=== PATIENT | male | born 1955 | race Caucasian/White ===

== ENCOUNTER 2016-12-19 10:54 | Day surgery (SDC) | payer MEDICAID ==
[2016-12-19] MEDS ORDERED: Midazolam 1 MG/ML 2 ML SDV ONE (11:12)
[2016-12-19] MEDS ORDERED: Propofol 200 MG/20 ML SDV ONE ×2 (11:12→13:33)
[2016-12-19] MEDS ORDERED: fentaNYL 100 MCG/2 ML SDV ONE ×2 (11:12→11:35)
[2016-12-19] MEDS ORDERED: Succinylcholine/Normal Saline 200 MG/10 ML Syringe ONE (11:37)
[2016-12-19] MEDS ORDERED: Rocuronium 50 MG/5 ML Vial ONE (11:37)
[2016-12-19] MEDS ORDERED: Ondansetron 4 MG/2 ML SDV ONE (11:37)
[2016-12-19] MEDS ORDERED: Dexamethasone 4 MG/ML SDV ONE (11:37)
[2016-12-19] MEDS ORDERED: Neostigmine Methylsulfate 1 MG/ML 5 ML Syringe ONE (11:37)
[2016-12-19] MEDS ORDERED: ceFAZolin 2 GM in Sodium Chloride 0.9% 50 ML IV ONE (12:00)
[2016-12-19] MEDS: Lactated Ringers 1,000 ML IV SCH ×2 (12:04→14:12)
[2016-12-19] MEDS ORDERED: Lidocaine 2% 20 ML MDV ONE (12:25)
[2016-12-19] MEDS ORDERED: Bupivacaine 0.5% 50 ML MDV ONE (12:25)
[2016-12-19] MEDS ORDERED: Albuterol/Ipratropium 3.0-0.5 MG/3 ML Neb Soln NEB ONE (12:45)
[2016-12-19] MEDS ORDERED: Naloxone 0.4 MG/ML SDV ONE (13:53)
[2016-12-19 15:24] VITALS: BP 124/84
--- NOTE | 2016-12-19 19:45 | OR ---
DATE OF PROCEDURE: 12/19/2016 LAUNDRY PRESSER: None. PREOPERATIVE DIAGNOSIS: Osteomyelitis, right heel, lateral side. POSTOPERATIVE DIAGNOSIS: Osteomyelitis, right heel, lateral side. PROCEDURE: Bone biopsy of right heel with cultures of right heel. ANESTHESIA: General. HEMOSTASIS: Obtained with an ankle tourniquet at 250 mmHg. ESTIMATED BLOOD LOSS: 10 mL. MATERIALS: Drain was placed. INJECTABLES: 17 mL of 1:1 mixture of lidocaine 2% plain, Marcaine 0.5% plain were injected intraoperatively. PATHOLOGY: Bone was sent both for pathological examination and for culture, and culture swabs were also taken, deep swabs, with aerobic and anaerobic. CONDITION: Stable. INDICATIONS: Painful lesion status post puncture wound in the right heel, plantar aspect of the right foot, that was unresponsive to conservative measures with signs of osteomyelitis on MRI. PROCEDURE IN DETAIL: The patient was brought to the operating room, placed on the operating table in supine position. Following general anesthesia, the right foot was scrubbed, prepped, and draped in the usual aseptic manner, raised to 60 degrees for hemostasis. The Esmarch was not used. Tourniquet was inflated. Foot was lowered to table. Skin incision was made on the lateral aspect of the right heel. Under fluoroscopic guidance, incisions were deepened to the subcutaneous tissue straight down to bone. The bone was probed and there was a soft area on the lateral aspect of the right heel, so a small portion of the plantar lateral aspect of the right heel was removed and taking down healthy solid hard bone that was not soft to metal probe. There was no purulence, no malodor, no signs of infection deeply. The bone was divided up into 2 separate containers, one was dry and was to be sent for aerobic, anaerobic, acid-fast bacteria, and fungal culture and the other was sent for pathological examination. The incision was then flushed out with copious amounts of 1 L of sterile saline and then closed with 2-0 Vicryl stitches and 3-0 nylon and then a drain was placed in the middle to help allow drainage and this will be removed in 48 hours. The patient's foot was dressed with Xeroform, 4x4s, Kerlix, and Coban. The patient was returned to recovery room with vital signs stable and vascular status intact to both feet. Ordered a PICC line inserted with vancomycin per pharmacy. The patient was told to rest and elevate the right foot, maintain strict nonweightbearing, ambulate with crutches or knee scooter and return to clinic in 2 days to have his dressing change and his drain removed and the patient to have IV vancomycin per pharmacy dosing. The patient was given prescription for Holloway 5/325 one tab p.o. q.4-6 h. p.r.n. pain dispensed #40. The patient is told to go to the emergency room immediately if he has any nausea, vomiting, fever, chills, chest pain, calf pain, or difficulty breathing. Wolfgang Wade DPM /[id number]
== END 2016-12-19 15:40 | disposition home or self-care (01) ==
LOC: JP.SDS 10:54
PROVIDERS: ATTEND Podiatrist Foot & Ankle Surgery
DX: M89.8X7 Other specified disorders of bone, ankle and foot (principal); K21.9 Gastro-esophageal reflux disease without esophagitis; E78.5 Hyperlipidemia, unspecified; E11.42 Type 2 diabetes mellitus with diabetic polyneuropathy; Z79.82 Long term (current) use of aspirin; Z79.899 Other long term (current) drug therapy; Z98.890 Other specified postprocedural states; F17.210 Nicotine dependence, cigarettes, uncomplicated
CPT/HCPCS: 20240; 36415; 82565; 82962; 87015; 87070; 87075; 87077; 87102; 87116; 87186; 87205; 87206; 88304; J0690; J1100; J2250; J2310; J2405; J2704; J3010; J7050; J7120; J7620

== ENCOUNTER 2020-05-10 10:44 | Emergency (ER) | payer MEDICAID ==
[2020-05-10 10:47] VITALS: BP 135/73; PULSE 63
--- NOTE | 2020-05-10 11:14 | EDM.PDOC ---
ED HPI GENERAL MEDICAL PROBLEM - General Chief Complaint: Genitourinary Problem Stated Complaint: KIDNEY STONE INCREASED PAIN Time Seen by Provider: 05/10/20 11:10 Source of Information: Reports: Patient, EMS History Limitations: Reports: No Limitations - History of Present Illness INITIAL COMMENTS - FREE TEXT/NARRATIVE: pt had a acute onset of rt flank pain and pain going to the the rt testicle, Onset: Today, Sudden, Other ( started at 7am. ) Duration: Hour(s): Location: Reports: Abdomen Associated Symptoms: Reports: Other (pt was nauseated and did dry heave, ) Right Lower Abdomen Pain Score (Numeric/FACES): 2 - Related Data Allergies Allergy/AdvReac Type Severity Reaction Status Date / Time No Known Allergies Allergy Verified 05/10/20 10:52 Home Meds: Home Meds Albuterol Sulfate [Proair Hfa] 2 puff IH QID 12/16/16 [History] Aspirin [Children's Aspirin] 81 mg PO DAILY 12/16/16 [History] Clotrimazole [Lotrimin AF 1% Crm] 1 applic TOP BID 12/16/16 [History] Insulin Glargine,Hum.Rec.Anlog [Lantus Solostar] 15 units SQ BEDTIME 12/16/16 [History] Ranitidine [Zantac] 150 mg PO BEDTIME 12/16/16 [History] atorvaSTATin [Lipitor] 40 mg PO BEDTIME 12/16/16 [History] metFORMIN [Glucophage] 1,000 mg PO BIDMEALS 12/16/16 [History] Tiotropium [Spiriva HandiHaler] 1 puff IH DAILY 05/10/20 [History] Past Medical History HEENT History: Reports: Impaired Vision Other HEENT History: wears glasses Cardiovascular History: Reports: High Cholesterol, SOB on Exertion Respiratory History: Reports: Asthma, Bronchitis, Recurrent, Pneumonia, Recurrent, SOB Gastrointestinal History: Reports: None Musculoskeletal History: Reports: Arthritis, Fracture, Neck Pain, Chronic Neurological History: Reports: Neuropathy, Diabetic, Neuropathy, Peripheral Endocrine/Metabolic History: Reports: Diabetes, Type II Dermatologic History: Reports: Other (See Below) Other Dermatologic History: bilat inguinal rash for "years" - Infectious Disease History Infectious Disease History: Reports: Chicken Pox - Past Surgical History Head Surgeries/Procedures: Reports: None HEENT Surgical History: Reports: Naso-Sinus Surgery Cardiovascular Surgical History: Reports: None Respiratory Surgical History: Reports: None GI Surgical History: Reports: Colonoscopy, Hernia Repair/Other Endocrine Surgical History: Reports: None Musculoskeletal Surgical History: Reports: Other (See Below) Social & Family History - Family History Cardiac: Reports: Aneurysm Respiratory: Reports: COPD - Tobacco Use Smoking Status *Q: Current Every Day Smoker Years of Tobacco use: 50 Packs/Tins Daily: 1.5 Used Tobacco, but Quit: No Second Hand Smoke Exposure: Yes - Caffeine Use Caffeine Use: Reports: Coffee - Recreational Drug Use Recreational Drug Use: No ED ROS GENERAL - Review of Systems Review Of Systems: See Below Constitutional: Reports: No Symptoms HEENT: Reports: No Symptoms Respiratory: Reports: No Symptoms Cardiovascular: Reports: No Symptoms Endocrine: Reports: No Symptoms GI/Abdominal: Reports: Abdominal Pain, Other ( rt flank area. ) : Reports: Flank Pain Musculoskeletal: Reports: No Symptoms Skin: Reports: No Symptoms Neurological: Reports: No Symptoms Psychiatric: Reports: Anxiety ED EXAM, GI/ABD - Physical Exam Exam: See Below Text/Narrative:: pt arrived with pain in the rt flank extending to the groin. Exam Limited By: No Limitations General Appearance: Alert, Anxious, Moderate Distress Ears: Normal TMs Nose: Normal Inspection Throat/Mouth: Normal Inspection Head: Atraumatic Neck: Normal Inspection Respiratory/Chest: No Respiratory Distress Cardiovascular: Regular Rate, Rhythm GI/Abdominal Exam: Other ( tender in the suprapupic area. ) (Male) Exam: Deferred Rectal (Males) Exam: Deferred Back Exam: Normal Inspection Extremities: Normal Inspection Neurological: Alert, Oriented, Normal Cognition Psychiatric: Anxious Course - Vital Signs Last Recorded V/S: Last Vital Signs Temp 35.9 C L 05/10/20 10:55 Pulse 63 05/10/20 10:55 Resp 17 05/10/20 10:55 BP 135/73 05/10/20 10:55 Pulse Ox 98 05/10/20 10:55 - Orders/Labs/Meds Orders: Active Orders 24 hr Category Date Time Status Sodium Chloride 0.9% [Normal Saline] 1,000 ml Med 05/10/20 11:15 Active IV ASDIRECTED Sodium Chloride 0.9% [Normal Saline] 1,000 ml Med 05/10/20 12:45 Active IV ASDIRECTED Medication Orders Sodium Chloride (Normal Saline) 1,000 mls @ 999 mls/hr IV ASDIRECTED ROSARIO Last Admin: 05/10/20 11:21 Dose: 999 mls/hr Documented by: KISHORE Sodium Chloride (Normal Saline) 1,000 mls @ 999 mls/hr IV ASDIRECTED ROSARIO Last Admin: 05/10/20 13:02 Dose: 999 mls/hr Documented by: KISHORE Labs: Laboratory Tests 05/10/20 05/10/20 05/10/20 Range/Units 11: 11:20 11:20 WBC 17.2 H (4.5-11.0) K/uL RBC 4.73 (4.30-5.90) M/uL Hgb 15.8 H (12.0-15.0) g/dL Hct 46.3 (40.0-54.0) % MCV 98 (80-98) fL MCH 33 H (27-31) pg MCHC 34 (32-36) % Plt Count 235 (150-400) K/uL Neut % (Auto) 89 H (36-66) % Lymph % (Auto) 5 L (24-44) % Burt % (Auto) 6 (2-6) % Eos % (Auto) 1 L (2-4) % Baso % (Auto) 0 (0-1) % Sodium 137 L (140-148) mmol/L Potassium 4.6 (3.6-5.2) mmol/L Chloride 104 (100-108) mmol/L Carbon Dioxide 28 (21-32) mmol/L Anion Gap 9.6 (5.0-14.0) mmol/L BUN 11 (7-18) mg/dL Creatinine 1.2 (0.8-1.3) mg/dL Est Cr Clr Drug Dosing 68.63 mL/min Estimated GFR (MDRD) > 60 (>60) Glucose 203 H (74-106) mg/dL Calcium 8.7 (8.5-10.1) mg/dL Total Bilirubin 0.4 (0.2-1.0) mg/dL AST 16 (15-37) U/L ALT 21 (12-78) U/L Alkaline Phosphatase 86 (46-116) U/L Total Protein 6.9 (6.4-8.2) g/dL Albumin 3.8 (3.4-5.0) g/dL Globulin 3.1 (2.3-3.5) g/dL Albumin/Globulin Ratio 1.2 (1.2-2.2) Urine Color Yellow (YELLOW) Urine Appearance Clear (CLEAR) Urine pH 5.5 (5.0-8.0) Ur Specific Pyrites 1.025 (1.008-1.030) Urine Protein Negative (NEGATIVE) mg/dL Urine Glucose (UA) 250 H (NEGATIVE) mg/dL Urine Ketones Negative (NEGATIVE) mg/dL Urine Occult Blood Small H (NEGATIVE) Urine Nitrite Negative (NEGATIVE) Urine Bilirubin Negative (NEGATIVE) Urine Urobilinogen 0.2 (0.2-1.0) EU/dL Ur Leukocyte Esterase Negative (NEGATIVE) Urine RBC 0-5 (0-5) Urine WBC 0-5 (0-5) Ur Epithelial Cells Not seen Amorphous Sediment Not seen Urine Bacteria Not seen Urine Mucus Moderate Meds: Medications Generic Name Dose Route Start Last Admin Trade Name Freq PRN Reason Stop Dose Admin Sodium Chloride 1,000 mls @ 999 mls/hr 05/10/20 11:15 05/10/20 11:21 Normal Saline IV 999 mls/hr ASDIRECTED ROSARIO Administration Sodium Chloride 1,000 mls @ 999 mls/hr 05/10/20 12:45 05/10/20 13:02 Normal Saline IV 999 mls/hr ASDIRECTED ROSARIO Administration Discontinued Medications Generic Name Dose Route Start Last Admin Trade Name Samantha PRN Reason Stop Dose Admin Hydromorphone HCl 0.5 mg 05/10/20 13:48 05/10/20 13:57 Dilaudid IVPUSH 05/10/20 13:49 0.5 mg ONETIME ONE Administration Ketorolac Tromethamine 30 mg 05/10/20 12:39 05/10/20 13:01 Toradol IVPUSH 05/10/20 12:40 30 mg ONETIME ONE Administration Tamsulosin HCl 0.4 mg 05/10/20 12:38 05/10/20 13:02 Flomax PO 05/10/20 12:39 0.4 mg ONETIME ONE Administration - Re-Assessments/Exams Free Text/Narrative Re-Assessment/Exam: 05/10/20 12:39 cat scan shows a large stone in the rt kidney. He has a 4 mm stone by the rt bladder area. His urine did not reveal alot of blood. Departure - Departure Time of Disposition: 14:38 Disposition: Home, Self-Care 01 Condition: Fair Clinical Impression: Renal calculi, Ureteral calculus, right - Discharge Information Referrals: PCP,None [Primary Care Provider] - Forms: ED Department Discharge Care Plan Goals: strain all urine, push fluids, flomax .4 for 5 days, torodol 10 mg q6h prn for pain, percocet 5/325 q6h prn for severe pain, rtc if pain should be unciontrolle d, If stone is not passed in the next 2 days see your own provider for followup. Sepsis Event Note (ED) - Evaluation Sepsis Screening Result: No Definite Risk - Focused Exam Vital Signs: Vital Signs Temp Pulse Resp BP Pulse Ox 05/10/20 10:55 35.9 C L 63 17 135/73 98 05/10/20 10:46 35.9 C L 63 17 135/73 98 - My Orders Last 24 Hours: My Active Orders 05/10/20 11:15 Sodium Chloride 0.9% [Normal Saline] 1,000 ml IV ASDIRECTED 05/10/20 12:45 Sodium Chloride 0.9% [Normal Saline] 1,000 ml IV ASDIRECTED - Assessment/Plan Last 24 Hours: My Active Orders 05/10/20 11:15 Sodium Chloride 0.9% [Normal Saline] 1,000 ml IV ASDIRECTED 05/10/20 12:45 Sodium Chloride 0.9% [Normal Saline] 1,000 ml IV ASDIRECTED
[2020-05-10] MEDS ORDERED: Sodium Chloride 0.9% 1,000 ML IV SCH ×2 (11:15→12:45)
--- NOTE | 2020-05-10 12:25 | CRLCT ---
INDICATION: Right flank pain radiating to the groin. TECHNIQUE: CT abdomen and pelvis without contrast. COMPARISON: None FINDINGS: Lower chest: Unremarkable. Liver: Unremarkable. Spleen: Unremarkable. Pancreas: Unremarkable. Gallbladder and bile ducts: Several small dependent high attenuation stones approximately. Kidneys: Moderate obstructive uropathy appearance of the right kidney. Hydroureter extends to a 4 mm calculus at the ureterovesicular junction. Urinary bladder is decompressed. Dense 7 mm lateral midpole calculus. Several 1 mm or less punctate developing calculi in the lower pole. 3 mm calculus lower pole left kidney. 1 mm or less developing calculi throughout the collecting system left kidney. Small hemorrhagic high attenuation cyst ventral upper pole. Several other small parenchymal cysts suggested in the left kidney. Adrenal glands: Unremarkable. GI tract: Unremarkable. Appendix is normal. Vascular structures: Atherosclerosis diffusely. Aneurysmal dilatation of infrarenal aorta to 4.5 cm greatest AP diameter. Minor dilatation at the origin of the right common iliac. Lymph nodes: Unremarkable. Miscellaneous: Right lower quadrant peritoneal laparoscopic hernia repair changes. No free air or significant free fluid. Pelvic Organs: Moderate prostatomegaly. Bones: Unremarkable for age. IMPRESSION: 4 mm right UVJ calculus with moderate obstructive uropathy right kidney. Multiple stones in each kidney. Large caliceal calculi on the right is 7 mm. One small hemorrhagic cyst upper pole left kidney with several smaller benign-appearing parenchymal cyst poorly characterized on this noncontrast study. Prostatomegaly. 4.5 cm infrarenal abdominal aortic aneurysm. Moderately prominent diffuse atherosclerotic calcification. Please note that all CT scans at this facility use dose modulation, iterative reconstruction, and/or weight-based dosing when appropriate to reduce radiation dose to as low as reasonably achievable. Dictated by Howard Leo MD @ May 10 2020 12:23PM Signed by Dr. Howard Leo @ May 10 2020 12:23PM
[2020-05-10] MEDS ORDERED: Tamsulosin 0.4 MG Cap.ER PO ONE (12:38)
[2020-05-10] MEDS ORDERED: Ketorolac 30 MG/ML SDV IVPUSH ONE (12:39)
[2020-05-10] MEDS ORDERED: HYDROmorphone 0.5 MG/0.5 ML Syringe IVPUSH ONE (13:48)
== END 2020-05-10 14:59 | disposition home or self-care (01) ==
LOC: JP.ED 10:44
DX: N20.2 Calculus of kidney with calculus of ureter (principal); E78.00 Pure hypercholesterolemia, unspecified; J45.909 Unspecified asthma, uncomplicated; E11.42 Type 2 diabetes mellitus with diabetic polyneuropathy; F17.210 Nicotine dependence, cigarettes, uncomplicated; Z79.82 Long term (current) use of aspirin; Z79.4 Long term (current) use of insulin; Z79.899 Other long term (current) drug therapy
CPT/HCPCS: 36415; 74176; 80053; 81001; 85025; 96361; 96374; 96375; 99285-25; A9270-GY; J1170; J1885; J7030

== ENCOUNTER 2022-07-18 15:37 | Emergency (ER) | payer MEDICARE, MEDICAID ==
[2022-07-18] MEDS ORDERED: Ketorolac 30 MG/ML SDV IM ONE (17:22)
[2022-07-18 17:47] LABS: ESTIMATED GFR 13 mL/min (>60)
[2022-07-18] MEDS ORDERED: HYDROmorphone 0.5 MG/0.5 ML Syringe IVPUSH ONE (20:05)
[2022-07-18 21:04] VITALS: BP 131/75; PULSE 94
== END 2022-07-18 20:12 ==
LOC: JP.ED 15:37
DX: N20.1 Calculus of ureter (principal); N17.9 Acute kidney failure, unspecified; E78.00 Pure hypercholesterolemia, unspecified; J45.909 Unspecified asthma, uncomplicated; E11.42 Type 2 diabetes mellitus with diabetic polyneuropathy; M19.90 Unspecified osteoarthritis, unspecified site; Z72.0 Tobacco use; Z79.82 Long term (current) use of aspirin; Z79.4 Long term (current) use of insulin; Z79.899 Other long term (current) drug therapy; Z20.822 Contact with and (suspected) exposure to COVID-19
CPT/HCPCS: 36415; 80053; 83605; 84145; 85025; 96372; 96374; 99284; J1170; J1885; U0002

== ENCOUNTER 2022-08-26 09:57 | Emergency (ER) | payer MEDICARE, MEDICAID ==
[2022-08-26 10:17] VITALS: BP 128/67; PULSE 98
== END 2022-08-26 14:41 | disposition home or self-care (01) ==
LOC: JP.ED 09:57
DX: N39.0 Urinary tract infection, site not specified (principal); E78.00 Pure hypercholesterolemia, unspecified; E11.9 Type 2 diabetes mellitus without complications; Z79.84 Long term (current) use of oral hypoglycemic drugs; Z79.899 Other long term (current) drug therapy
CPT/HCPCS: 36415; 80048; 81001; 83605; 84145; 85025; 87086; 99283

== ENCOUNTER 2022-11-01 07:09 | Day surgery (SDC) | payer MEDICARE, MEDICAID ==
[2022-11-01] MEDS ORDERED: fentaNYL 50 MCG/ML SDV ONE (07:24)
[2022-11-01] MEDS ORDERED: Midazolam 1 MG/ML 2 ML SDV ONE (07:24)
[2022-11-01] MEDS ORDERED: Propofol 200 MG/20 ML SDV ONE (07:24)
[2022-11-01] MEDS ORDERED: Lactated Ringers 1,000 ML IV SCH (08:00)
[2022-11-01 09:46] VITALS: BP 131/76; PULSE 76
== END 2022-11-01 10:05 | disposition home or self-care (01) ==
LOC: JP.SDS 07:09
PROVIDERS: ATTEND Family Medicine
DX: Z12.11 Encounter for screening for malignant neoplasm of colon (principal); D12.5 Benign neoplasm of sigmoid colon; E11.9 Type 2 diabetes mellitus without complications; K21.9 Gastro-esophageal reflux disease without esophagitis; E78.5 Hyperlipidemia, unspecified; J44.9 Chronic obstructive pulmonary disease, unspecified; Z79.899 Other long term (current) drug therapy
CPT/HCPCS: 45380; J2250; J2704; J3010; J7120

== ENCOUNTER 2023-01-03 05:52 | Day surgery (SDC) | payer MEDICARE, MEDICAID ==
[2023-01-03] MEDS ORDERED: Dextrose 5%-Lactated Ringers 1,000 ML IV SCH (07:00)
[2023-01-03] MEDS ORDERED: Albuterol 0.083% 2.5 MG/3 ML Neb Soln NEB ONE (07:05)
[2023-01-03] MEDS ORDERED: Propofol 200 MG/20 ML SDV ONE (07:21)
[2023-01-03] MEDS ORDERED: fentaNYL 100 MCG/2 ML SDV ONE (07:21)
[2023-01-03 08:55] VITALS: PULSE 79
[2023-01-03 09:15] VITALS: BP 135/75
== END 2023-01-03 09:11 | disposition home or self-care (01) ==
LOC: JP.SDS 05:52
PROVIDERS: ATTEND Family Medicine
DX: Z12.11 Encounter for screening for malignant neoplasm of colon (principal); D12.2 Benign neoplasm of ascending colon; D12.4 Benign neoplasm of descending colon; D12.3 Benign neoplasm of transverse colon; E11.9 Type 2 diabetes mellitus without complications; E78.5 Hyperlipidemia, unspecified; J44.9 Chronic obstructive pulmonary disease, unspecified; K21.9 Gastro-esophageal reflux disease without esophagitis; Z86.010 Personal history of colon polyps; Z98.890 Other specified postprocedural states; Z79.899 Other long term (current) drug therapy
CPT/HCPCS: 45380; 94640; J2704; J3010; J7121; 88305